=== PATIENT | female | born 1980 | race Caucasian/White ===

== ENCOUNTER → 2017-03-14 | Outpatient (CLI) | payer OTHER ==
[2017-03-14 15:24] LABS: BASOPHILS % (AUTO) 0 % (0-10); EOSINOPHILS % (AUTO) 1 % (0-10); LYMPHOCYTES # (AUTO) 2.1 X 10^3 (1.0-4.0); LYMPHOCYTES % (AUTO) 38 % (12-44); MEAN CORPUSCULAR HEMOGLOBIN 31 PG (25-34); MEAN CORPUSCULAR HGB CONC 33 G/DL (32-36); MEAN CORPUSCULAR VOLUME 91 FL (80-99); MEAN PLATELET VOLUME 10.3 FL (7.4-10.4); MONOCYTES # (AUTO) 0.4 X 10^3 (0.0-1.0); MONOCYTES % (AUTO) 7 % (0-12); NEUTROPHILS % (AUTO) 54 % (42-75); PLATELET COUNT 306 10^3/uL (130-400); RED CELL DISTRIBUTION WIDTH 13.1 % (10.0-14.5); WHITE BLOOD COUNT 5.6 10^3/uL (4.3-11.0)
[2017-03-14 15:45] LABS: ALANINE AMINOTRANSFERASE 17 U/L (0-55); ALBUMIN 4.1 GM/DL (3.2-4.5); ANION GAP 7 MMOL/L (5-14); ASPARTATE AMINO TRANSFERASE 19 U/L (5-34); BILIRUBIN,TOTAL 0.3 MG/DL (0.1-1.0); BLOOD UREA NITROGEN 14 MG/DL (7-18); BUN/CREATININE RATIO 17; CALCIUM 9.5 MG/DL (8.5-10.1); CARBON DIOXIDE 26 MMOL/L (21-32); CHLORIDE 109 MMOL/L (98-107); CREATININE SERUM 0.81 MG/DL (0.60-1.30); GFR ESTIMATED > 60; GLUCOSE 68 MG/DL (70-105); POTASSIUM 3.9 MMOL/L (3.6-5.0); SODIUM 142 MMOL/L (135-145); TOTAL PROTEIN 7.1 GM/DL (6.4-8.2)
[2017-03-14 16:05] LABS: THYROID STIMULATING HORMONE 0.51 UIU/ML (0.35-4.94)
== END ==
LOC: LAB 15:06
PROVIDERS: ATTEND Family Medicine
DX: R53.83 Other fatigue (principal); E03.9 Hypothyroidism, unspecified
CPT/HCPCS: 36415; 80053; 84439; 84443; 85025

== ENCOUNTER → 2018-07-11 | Outpatient (CLI) | payer OTHER ==
[2018-07-11 12:41] LABS: BASOPHILS % (AUTO) 0 % (0-10); EOSINOPHILS # (AUTO) 0.1 10^3/uL (0.0-0.3); EOSINOPHILS % (AUTO) 2 % (0-10); HEMATOCRIT 36 % (35-52); HEMOGLOBIN 12.1 G/DL (11.5-16.0); LYMPHOCYTES # (AUTO) 2.4 X 10^3 (1.0-4.0); LYMPHOCYTES % (AUTO) 42 % (12-44); MEAN CORPUSCULAR HEMOGLOBIN 30 PG (25-34); MEAN CORPUSCULAR HGB CONC 34 G/DL (32-36); MEAN CORPUSCULAR VOLUME 89 FL (80-99); MEAN PLATELET VOLUME 10.3 FL (7.4-10.4); MONOCYTES # (AUTO) 0.5 X 10^3 (0.0-1.0); MONOCYTES % (AUTO) 8 % (0-12); NEUTROPHILS # (AUTO) 2.8 X 10^3 (1.8-7.8); NEUTROPHILS % (AUTO) 48 % (42-75); PLATELET COUNT 300 10^3/uL (130-400); RED CELL DISTRIBUTION WIDTH 13.5 % (10.0-14.5); WHITE BLOOD COUNT 5.8 10^3/uL (4.3-11.0)
[2018-07-11 13:07] LABS: ALANINE AMINOTRANSFERASE 14 U/L (0-55); ALBUMIN 4.5 GM/DL (3.2-4.5); ALKALINE PHOSPHATASE 25 U/L (40-136); BILIRUBIN,TOTAL 0.4 MG/DL (0.1-1.0); BUN/CREATININE RATIO 19; CALCIUM 9.6 MG/DL (8.5-10.1); CARBON DIOXIDE 24 MMOL/L (21-32); CHLORIDE 107 MMOL/L (98-107); CHOLESTEROL 174 MG/DL (< 200); CREATININE SERUM 0.81 MG/DL (0.60-1.30); GFR ESTIMATED > 60; GLUCOSE 87 MG/DL (70-105); HDL CHOLESTEROL 49 MG/DL (40-60); POTASSIUM 3.7 MMOL/L (3.6-5.0); SODIUM 140 MMOL/L (135-145); TOTAL PROTEIN 7.2 GM/DL (6.4-8.2); TRIGLYCERIDES 128 MG/DL (<150); VLDL CHOLESTEROL 26 MG/DL (5-40)
[2018-07-11 13:18] LABS: ERYTHROCYTE SEDIMENTATION RATE 15 MM/HR (0-20)
[2018-07-11 13:27] LABS: FREE T4 (FREE THYROXINE) 0.95 NG/DL (0.70-1.48)
== END ==
LOC: LAB 12:23
PROVIDERS: ATTEND Family Medicine
DX: Z00.00 Encounter for general adult medical examination without abnormal findings (principal); R53.83 Other fatigue
CPT/HCPCS: 36415; 80053; 80061; 83970; 84439; 84443; 85025; 85652

== ENCOUNTER → 2019-01-17 | Outpatient (REF) ==
--- NOTE | 2019-01-17 18:01 | Diagnostic Imaging Report ---
INDICATION: Right wrist pain. AP, oblique, and lateral views of the right wrist are obtained. No fracture or acute bony abnormality is seen. IMPRESSION: Negative right wrist. Dictated by: Dictated on workstation # [id number]
== END | disposition home or self-care (01) ==
LOC: MERGE 15:53 → OCC 15:53
PROVIDERS: ATTEND Family Medicine
CPT/HCPCS: 73110

== ENCOUNTER 2019-03-04 08:00 | Outpatient (RCR) | payer OTHER | END 2019-03-04 13:23 | disposition home or self-care (01) | PROVIDERS: ATTEND Family Medicine | DX: M12.531 Traumatic arthropathy, right wrist (principal) ==

== ENCOUNTER → 2020-08-03 | Outpatient (RCR) | payer OTHER | END | disposition home or self-care (01) | PROVIDERS: ATTEND Nurse Practitioner Family | DX: M54.16 Radiculopathy, lumbar region (principal); M79.604 Pain in right leg; M79.605 Pain in left leg ==

== ENCOUNTER 2020-08-28 09:54 | Outpatient (RCR) | payer OTHER | END 2020-09-25 15:34 | disposition home or self-care (01) | PROVIDERS: ATTEND Nurse Practitioner Family | DX: M54.42 Lumbago with sciatica, left side (principal); M54.41 Lumbago with sciatica, right side; J45.909 Unspecified asthma, uncomplicated ==

== ENCOUNTER → 2020-10-23 | Outpatient (CLI) | payer OTHER ==
--- NOTE | 2020-10-23 12:03 | Diagnostic Imaging Report ---
Indication: Routine screening. No prior mammograms are available for comparison. This a baseline mammogram. 2-D and 3-D bilateral screening mammography was performed with CAD. Both breasts are heterogeneously dense, limiting the sensitivity of mammography. There is a focal density in the lower and slightly inner aspect of the right breast at mid depth. Left breast is unremarkable. There are benign calculus locations. No malignant appearing microcalcifications are seen. Axillae are unremarkable. IMPRESSION: BI-RADS 0 Right breast density. Additional views recommended for further evaluation. ACR BI-RADS Category 0: Incomplete. (Needs additional imaging evaluation). Result letter will be mailed to the patient. Note: At least 10% of breast cancer is not imaged by mammography. Dictated by: Dictated on workstation # [id number]
== END ==
LOC: RAD 10:30
PROVIDERS: ATTEND Nurse Practitioner
DX: Z12.31 Encounter for screening mammogram for malignant neoplasm of breast (principal)
CPT/HCPCS: 77063; 77067

== ENCOUNTER → 2020-11-16 | Outpatient (CLI) | payer OTHER ==
--- NOTE | 2020-11-16 14:07 | Diagnostic Imaging Report ---
INDICATION: A curvilinear nodule right breast inferiorly seen at screening mammograms. A unilateral right 2-D and 3-D digital diagnostic mammograms with CAD performed. There is persistent curvilinear nodule inferiorly in the right breast at its mid depth. This has a lucent component and is probably but inconclusively reflective of an intramammary lymph node. We are proceeding with targeted right breast ultrasound as further evaluation is currently pending. No other focal abnormality. No spiculated lesion and no suspicious calcifications. IMPRESSION: Persistent curvilinear right breast density appears to have a significant fatty composition favored to be a lymph node, ultrasound correlation currently pending BI-RADS Category 0. Right breast ultrasound recommended and currently pending. ACR BI-RADS Category 0: Incomplete. (Needs additional imaging evaluation). Result letter will be mailed to the patient. Note: At least 10% of breast cancer is not imaged by mammography. Dictated by: Dictated on workstation # [id number]
--- NOTE | 2020-11-16 14:09 | Diagnostic Imaging Report ---
INDICATION: Baseline screening as well as subsequent diagnostic views. There was a somewhat persistent albeit inconsistent curvilinear opacity mid depth right breast inferiorly. No spiculated lesion at mammography and convincing true mass was not identified. We did however went to proceed with targeted right breast ultrasound. Targeted right breast ultrasound over the inferior aspect of the right breast showed no solid or cystic mass. No ductal ectasia, no fluid collection and no parenchymal distortion. IMPRESSION: This is a normal negative targeted right breast ultrasound and separately performed diagnostic mammography showed equivocal findings for a small partly fatty mass. As initially presents with Baseline views. I do feel 6 month follow-up unilateral right diagnostic mammography with possible ultrasound at that time is appropriate despite negative ultrasound. BI-RADS Category 3 likely benign findings but follow-up 6 month right diagnostic mammogram recommended with possible ultrasound at that time. ACR BI-RADS Category 3: Probably benign findings. Result letter will be mailed to the patient. Note: At least 10% of breast cancer is not imaged by mammography. Dictated by: Dictated on workstation # [id number]
== END ==
LOC: RAD 13:15
PROVIDERS: ATTEND Nurse Practitioner
DX: N63.10 Unspecified lump in the right breast, unspecified quadrant (principal)
CPT/HCPCS: 76642; 77065; G0279

== ENCOUNTER → 2021-07-08 | Outpatient (CLI) | payer OTHER ==
--- NOTE | 2021-07-08 11:21 | Diagnostic Imaging Report ---
INDICATION: Right breast density. Patient presents for a six-month follow-up. CORRELATION is made with prior mammogram from 10/23/2020. Unilateral right 2-D and 3-D diagnostic mammography was performed with CAD. Scattered fibroglandular densities of the right breast are noted. The density noted in the inferior central right breast appears stable. No new mass or malignant-appearing microcalcifications are seen. Right axilla is unremarkable. IMPRESSION: BI-RADS Category 3 Stable right mammogram and right breast density. Additional six-month follow-up is recommended to show continued stability. ACR BI-RADS Category 3: Probably benign findings. Result letter will be mailed to the patient. Note: At least 10% of breast cancer is not imaged by mammography. Dictated by: Dictated on workstation # [id number]
== END ==
LOC: RAD 09:45
PROVIDERS: ATTEND Nurse Practitioner
DX: R92.8 Other abnormal and inconclusive findings on diagnostic imaging of breast (principal)
CPT/HCPCS: 77065; G0279

== ENCOUNTER 2021-08-13 11:09 | Outpatient (CLI) | payer OTHER | END 2021-08-13 11:50 | disposition home or self-care (01) | LOC: SLEEP 11:09 | PROVIDERS: ATTEND Nurse Practitioner Family | DX: G47.9 Sleep disorder, unspecified (principal) | CPT/HCPCS: G0399 ==

== ENCOUNTER → 2022-06-02 | Outpatient (CLI) | payer OTHER ==
--- NOTE | 2022-06-02 10:27 | Diagnostic Imaging Report ---
INDICATION: Abdominal pain Gallbladder sonography performed the routine fashion The liver shows normal echogenicity without focal lesion. Portal vein is patent with hepatopetal flow. Gallbladder is somewhat enlarged and hydropic. There is sludge in the gallbladder posteriorly. There is minimal to no gallbladder wall thickening. Common duct measured 4 mm. The visualized portions of the pancreas are normal. The aorta and IVC are of indeterminate overlying gas. Right kidney measured 9.9 cm in length. There is no ascites. IMPRESSION: Gallbladder is mildly distended and contains some sludge. There is no significant gallbladder wall thickening or biliary dilatation. There was no other significant finding. If there is clinical suspicion for cholecystitis, nuclear hepatobiliary study may be helpful. Dictated by: Dictated on workstation # [id number]
== END ==
LOC: RAD 08:00
DX: K82.9 Disease of gallbladder, unspecified (principal)
CPT/HCPCS: 76705

== ENCOUNTER 2022-06-13 12:16 | Emergency (ER) | payer OTHER ==
[~2022-06-13] VITALS: Ht 149 cm; Wt 62.0 kg
[2022-06-13] MEDS ORDERED: LACTATED RINGERS 1,000 ML IV STA (13:18)
--- NOTE | 2022-06-13 13:23 | ED Abdominal Pain ---
General Chief Complaint: Abdominal/GI Problems Stated Complaint: ABD PAIN Nursing Triage Note: ABDPAIN STARTING ON SAT. GALLBLADDER REMOVED ON MONDAY. STATES SHE CALLED HER DR WHO THINKS SHE HAS A BOWEL IMPACTION. Source of Information: Patient Exam Limitations: No Limitations History of Present Illness Date Seen by Provider: Jun 13, 2022 Time Seen by Provider: 12:22 Initial Comments 41-year-old female with past medical history of multiple abdominal surgeries with recent [facility] [place] coming in due to abdominal pain and constipation with persistent nausea. Surgery was , went home same day. Did not have a bowel movement until Monday. Have been taking Dulcolax as needed. Intermittently has issues with constipation anyways, but worsened due to the pain medication. At home she is been on tramadol with the last dose given yesterday. She has Phenergan for nausea with the last dose taken yesterday as well. Has not had any significant vomiting. Is keeping fluids down. Had a hard stool on Monday which was very small. Otherwise denying any fever, chest pain, shortness of breath, dysuria, diarrhea, rash, or any other concerns Allergies and Home Medications Allergies Coded Allergies: hydrocodone (Verified Allergy, Severe, HIVES, 06/13/22) COVID-19 (SARS-CoV-2) vaccine, zaire (Verified Adverse Reaction, Unknown, COVID SX, 06/13/22) Patient Home Medication List Home Medication List Reviewed: Yes Review of Systems Review of Systems Constitutional: No fever EENTM: No Symptoms Reported Respiratory: No Symptoms Reported Cardiovascular: No Symptoms Reported Gastrointestinal: See HPI Genitourinary: No Symptoms Reported Musculoskeletal: no symptoms reported Skin: no symptoms reported Psychiatric/Neurological: No Symptoms Reported Endocrine: No Symptoms Reported Hematologic/Lymphatic: No Symptoms Reported Past Xstuwoc-Bjsgsl-Tfixjj Hx Patient Social History Tobacco Use?: No Substance use?: No Alcohol Use?: No Immunizations Up To Date Second COVID19 Vaccination Markel: UNKNOWN COVID19 Vaccine Ssn/Ssbn Assistant Navigator: ERA Past Medical History Surgery/Hospitalization HX: Niesen followed by reversal of her Niesen, cholecystectomy, x3, hysterectomy Hysterectomy Physical Exam Vital Signs Vital Signs - First Documented 06/13/22 12:39 Temp 36.4 Pulse 98 Resp 16 B/P (MAP) 117/84 (95) Pulse Ox 98 O2 Delivery Room Air Capillary Refill : Less Than 3 Seconds Height/Weight/BMI Height: '" Weight: lbs. oz. kg; 27.00 BMI Method: General Appearance: WD/WN, no apparent distress HEENT: PERRL/EOMI, normal ENT inspection, pharynx normal Neck: non-tender, full range of motion, supple, normal inspection Respiratory: chest non-tender, lungs clear, normal breath sounds, no respiratory distress, no accessory muscle use Cardiovascular: regular rate, rhythm, no edema, no murmur Gastrointestinal: normal bowel sounds, soft; No distended, No guarding, No rebound; tenderness (Mild general), other (Abdominal wounds clean, dry, intact with surgical glue in place) Extremities: normal range of motion, non-tender, normal inspection, no pedal edema, no calf tenderness, normal capillary refill Back: normal inspection, no CVA tenderness Neurologic/Psychiatric: no motor/sensory deficits, alert, normal mood/affect Skin: normal color, warm/dry Lymphatic: no adenopathy Progress/Results/Core Measures Results/Orders Lab Results Laboratory Tests Test 06/13/22 13:10 Range/Units White Blood Count 15.3 H 4.3-11.0 10^3/uL Red Blood Count 5.07 3.80-5.11 10^6/uL Hemoglobin 15.2 11.5-16.0 g/dL Hematocrit 44 35-52 % Mean Corpuscular Volume 87 80-99 fL Mean Corpuscular Hemoglobin 30 25-34 pg Mean Corpuscular Hemoglobin Concent 34 32-36 g/dL Red Cell Distribution Width 16.6 H 10.0-14.5 % Platelet Count 410 H 130-400 10^3/uL Mean Platelet Volume 11.0 9.0-12.2 fL Immature Granulocyte % (Auto) 0 % Neutrophils (%) (Auto) 83 H 42-75 % Lymphocytes (%) (Auto) 9 L 12-44 % Monocytes (%) (Auto) 7 0-12 % Eosinophils (%) (Auto) 0 0-10 % Basophils (%) (Auto) 0 0-10 % Neutrophils # (Auto) 12.7 H 1.8-7.8 10^3/uL Lymphocytes # (Auto) 1.4 1.0-4.0 10^3/uL Monocytes # (Auto) 1.1 H 0.0-1.0 10^3/uL Eosinophils # (Auto) 0.0 0.0-0.3 10^3/uL Basophils # (Auto) 0.0 0.0-0.1 10^3/uL Immature Granulocyte # (Auto) 0.1 0.0-0.1 10^3/uL Neutrophils % (Manual) 85 % Lymphocytes % (Manual) 7 % Monocytes % (Manual) 4 % Band Neutrophils 4 % Poikilocytosis SLIGHT Anisocytosis SLIGHT Microcytosis SLIGHT Macrocytosis SLIGHT Sodium Level 138 135-145 MMOL/L Potassium Level 3.0 L 3.6-5.0 MMOL/L Chloride Level 107 98-107 MMOL/L Carbon Dioxide Level 13 L 21-32 MMOL/L Anion Gap 18 H 5-14 MMOL/L Blood Urea Nitrogen 10 7-18 MG/DL Creatinine 0.78 0.60-1.30 MG/DL Estimat Glomerular Filtration Rate 98 BUN/Creatinine Ratio 13 Glucose Level 93 70-105 MG/DL Calcium Level 10.0 8.5-10.1 MG/DL Corrected Calcium 9.6 8.5-10.1 MG/DL Magnesium Level 1.7 1.6-2.4 MG/DL Total Bilirubin 0.5 0.1-1.0 MG/DL Aspartate Amino Transf (AST/SGOT) 11 5-34 U/L Alanine Aminotransferase (ALT/SGPT) 20 0-55 U/L Alkaline Phosphatase 39 L 40-136 U/L Total Protein 8.1 6.4-8.2 GM/DL Albumin 4.5 3.2-4.5 GM/DL Lipase 56 8-78 U/L My Orders Orders - MARIANELA MONROY MD Cbc With Automated Diff (06/13/22 13:18) Comprehensive Metabolic Panel (06/13/22 13:18) Lipase (06/13/22 13:18) Magnesium (06/13/22 13:18) Ct Abdomen/Pelvis W (06/13/22 13:18) Ed Iv/Invasive Line Start (06/13/22 13:18) Ondansetron Injection (Zofran Injectio (06/13/22 13:30) Lactated Ringers (Lr 1000 Ml Iv Solution (06/13/22 13:18) Methylnaltrexone Injection (Relistor Inj (06/13/22 13:30) Iohexol Injection (Omnipaque 350 Mg/Ml 1 (06/13/22 13:30) Received Contrast (Hold Metformin- Contr (06/13/22 13:30) Ns (Ivpb) (Sodium Chloride 0.9% Ivpb Bag (06/13/22 13:30) Manual Differential (06/13/22 13:10) Medications Given in ED Current Medications Medications Dose Ordered Sig/Daisy Route Start Time Stop Time Status Last Admin Dose Admin Iohexol 100 ml ONCE ONCE IV 06/13/22 13:30 06/13/22 13:31 DC 06/13/22 13:44 80 ML Methylnaltrexone [place] 12 mg ONCE ONCE SQ 06/13/22 13:30 06/13/22 13:31 DC 06/13/22 13:30 12 MG Ondansetron HCl 4 mg ONCE ONCE IVP 06/13/22 13:30 06/13/22 13:31 DC 06/13/22 13:30 4 MG Sodium Chloride 100 ml ONCE ONCE IV 06/13/22 13:30 06/13/22 13:31 DC 06/13/22 13:44 80 ML Vital Signs/I&O 06/13/22 12:39 Temp 36.4 Pulse 98 Resp 16 B/P (MAP) 117/84 (95) Pulse Ox 98 O2 Delivery Room Air Blood Pressure Mean: 95 Progress Progress Note : Progress Note 41-year-old female with above history coming in due to abdominal pain and constipation. ABCs were intact and vitals are stable on presentation. Her abdominal exam is reassuring including a soft abdomen with no signs of peritonitis. Her abdominal surgical wounds appear clean, dry, intact. An IV was placed and basic labs were obtained and overall not concerning especially given recent surgery. She was given fluids as well as Zofran. Given subcu methylnaltrexone given the constipation likely related to opioids. CT abdomen pelvis with left sided colon and colitis likely. We will start her on Augmentin, nausea meds, and a solid regimen for persistent bowel movements. Diagnostic Imaging Diagonstic Imaging: CT (abd/pelvis) Comments NAME: ZENOBIA AGUILARSAMARA Bo [facility] REC#: [id number] PT STATUS: REG ER : 1980 PHYSICIAN: MARIANELA MONROY MD ADMIT DATE: 06/13/22/ER Draft Date of Exam:06/13/22 CT ABDOMEN/PELVIS W EXAMINATION: CT abdomen and pelvis with intravenous contrast. TECHNIQUE: Multiple contiguous axial images were obtained through the abdomen and pelvis after the uneventful administration of intravenous contrast. All CT scans use one or more of the following dose optimizing techniques: automated exposure control, MA and/or KvP adjustment based on patient size and exam type or iterative reconstruction. HISTORY: lower abd pain, recent cholecystectomy, no BM for 2 days COMPARISON: None available. FINDINGS: Lung bases: The lung bases are clear. Solid organs: The liver is normal without focal lesion. The gallbladder is surgically absent. There is no biliary ductal dilation. Pancreas is normal. Spleen is normal. Adrenal glands are normal. The kidneys are normal without hydronephrosis. Bowel: Surgical changes of the stomach and small bowel. There is no bowel obstruction. There is diffuse wall thickening of the left hemicolon. The appendix is normal. Peritoneum: There is no intraperitoneal free fluid or free air. No suspicious lymphadenopathy. Vasculature: Normal without aneurysm. Musculoskeletal: No suspicious osseous lesion or compression fracture. Pelvis: The uterus is surgically absent. No adnexal mass. The urinary bladder is normal. IMPRESSION: 1. Wall thickening and inflammatory stranding of the left hemicolon which is concerning for an infectious or inflammatory colitis. Dictated on workstation # [id number] Dict: 06/13/22 1351 Trans: 06/13/22 1356 [id number] [id number] Interpreted by: LILI PELAEZ DO Electronically signed by: Departure Impression Primary Impression: Colitis Additional Impression: Constipation Qualified Codes: K59.03 - Drug induced constipation Disposition: 01 HOME, SELF-CARE Condition: Stable Departure-Patient Inst. Decision time for Depature: 14:08 Referrals: RADHA GLASS APRN (PCP) Primary Care Physician DIANA LUGO DO (Family) Primary Care Physician Patient Instructions: Colitis (DC), Constipation, Adult ED Add. Discharge Instructions: You have 2 issues, constipation is likely related to the surgery, but there does not appear to be any type of impaction or obstruction on the CT imaging. There is some inflammation in the left side of your colon which is likely infectious. You will be on antibiotics for the next week. These can cause loose stools, which may be something that you might not mind at this time. We will also start you on a regimen of MiraLAX twice daily until you are having more frequent bowel movements. Oxycodone was sent which she can take for times of extreme pain, Tylenol otherwise. Zofran was also sent which you can take if the Phenergan is not working. Follow-up with your surgeon in the next week, especially if things are not improving. Scripts Ondansetron (Ondansetron Odt) 4 Mg Tab.rapdis 4 MG SL Q6H PRN for NAUSEA/VOMITING for 5 Days, #20 TAB Prov: MARIANELA MONROY MD 06/13/22 Oxycodone HCl (Oxycodone HCl) 5 Mg Tablet 5 MG PO Q8H PRN for PAIN-SEVERE (8-10) for 4 Days, #12 TAB Prov: MARIANELA MONROY MD 06/13/22 Polyethylene Glycol 3350 (Miralax) 17 Gram Powd.pack 17 GM PO BID for 7 Days, #14 EACH Prov: MARIANELA MONROY MD 06/13/22 Amoxicillin/Potassium Clav (Amox Tr-K Clv 875-125 mg Tab) 875 Mg-125 Mg Tablet 1 EACH PO BID for 7 Days, #14 TAB Prov: MARIANELA MONROY MD 06/13/22 Work/School Note: Family Work Note, Patient Received Medical Care In the Emergency Department On: Jun 13, 2022 Patient Will Be Able to Return to Work/School On: Jun 14, 2022 Work Release Form Date Seen in the Emergency Department: Jun 13, 2022 Return to Work: Jun 14, 2022 Restrictions: No Restrictions MARIANELA MONROY MD Jun 13, 2022 13:23
[2022-06-13 13:25] LABS: BASOPHILS % (AUTO) 0 % (0-10); EOSINOPHILS % (AUTO) 0 % (0-10); HEMATOCRIT 44 % (35-52); HEMOGLOBIN 15.2 g/dL (11.5-16.0); LYMPHOCYTES # (AUTO) 1.4 10^3/uL (1.0-4.0); LYMPHOCYTES % (AUTO) 9 % (12-44); MEAN CORPUSCULAR HEMOGLOBIN 30 pg (25-34); MEAN CORPUSCULAR HGB CONC 34 g/dL (32-36); MEAN CORPUSCULAR VOLUME 87 fL (80-99); MONOCYTES # (AUTO) 1.1 10^3/uL (0.0-1.0); MONOCYTES % (AUTO) 7 % (0-12); NEUTROPHILS # (AUTO) 12.7 10^3/uL (1.8-7.8); NEUTROPHILS % (AUTO) 83 % (42-75); PLATELET COUNT 410 10^3/uL (130-400); WHITE BLOOD COUNT 15.3 10^3/uL (4.3-11.0)
[2022-06-13] MEDS ORDERED: HOLD METFORMIN - RECEIVED CONTRAST 20 ML VIAL IV SCH (13:30)
[2022-06-13] MEDS ORDERED: METHYLNALTREXONE 12 MG/0.6 ML (RELISTOR) VIAL SQ ONE (13:30)
[2022-06-13] MEDS ORDERED: ONDANSETRON 4 MG/2 ML (SDV) Z0FRAN IVP ONE (13:30)
[2022-06-13] MEDS ORDERED: IOHEXOL 350 MG/ML 100 ML (OMNIPAQUE 350) VIAL IV ONE (13:30)
[2022-06-13] MEDS ORDERED: NS 100 ML (IVPB) BAG IV ONE (13:30)
[2022-06-13 13:32] LABS: ALBUMIN 4.5 GM/DL (3.2-4.5)
[2022-06-13 13:35] LABS: TOTAL PROTEIN 8.1 GM/DL (6.4-8.2)
[2022-06-13 13:37] LABS: BILIRUBIN,TOTAL 0.5 MG/DL (0.1-1.0)
[2022-06-13 13:39] LABS: CREATININE SERUM 0.78 MG/DL (0.60-1.30)
[2022-06-13 13:40] LABS: BAND NEUTROPHILS 4 %; LYMPHOCYTES % (MANUAL) 7 %; MONOCYTES % (MANUAL) 4 %; NEUTROPHILS % (MANUAL) 85 %
[2022-06-13 13:41] LABS: MAGNESIUM 1.7 MG/DL (1.6-2.4)
[2022-06-13 13:44] LABS: ANISOCYTOSIS SLIGHT; MICROCYTOSIS SLIGHT
[2022-06-13 13:45] LABS: POIKILOCYTOSIS SLIGHT
--- NOTE | 2022-06-13 13:57 | Diagnostic Imaging Report ---
EXAMINATION: CT abdomen and pelvis with intravenous contrast. TECHNIQUE: Multiple contiguous axial images were obtained through the abdomen and pelvis after the uneventful administration of intravenous contrast. All CT scans use one or more of the following dose optimizing techniques: automated exposure control, MA and/or KvP adjustment based on patient size and exam type or iterative reconstruction. HISTORY: lower abd pain, recent cholecystectomy, no BM for 2 days COMPARISON: None available. FINDINGS: Lung bases: The lung bases are clear. Solid organs: The liver is normal without focal lesion. The gallbladder is surgically absent. There is no biliary ductal dilation. Pancreas is normal. Spleen is normal. Adrenal glands are normal. The kidneys are normal without hydronephrosis. Bowel: Surgical changes of the stomach and small bowel. There is no bowel obstruction. There is diffuse wall thickening of the left hemicolon. The appendix is normal. Peritoneum: There is no intraperitoneal free fluid or free air. No suspicious lymphadenopathy. Vasculature: Normal without aneurysm. Musculoskeletal: No suspicious osseous lesion or compression fracture. Pelvis: The uterus is surgically absent. No adnexal mass. The urinary bladder is normal. IMPRESSION: 1. Wall thickening and inflammatory stranding of the left hemicolon which is concerning for an infectious or inflammatory colitis. Dictated by: Dictated on workstation # [id number]
[2022-06-13] MEDS ORDERED: ONDA4TAB11 SL (14:05)
[2022-06-13] MEDS ORDERED: POLY17PO6 PO (14:05)
[2022-06-13] MEDS ORDERED: OXYC5TAB PO (14:05)
[2022-06-13] MEDS ORDERED: AMOX1TAB12 PO (14:05)
[2022-06-13 14:30] VITALS: BP 103/72
== END 2022-06-13 14:30 | disposition home or self-care (01) ==
LOC: EDUNIT# 12:16 → ER 12:18
DX: K59.00 Constipation, unspecified (principal); K52.9 Noninfective gastroenteritis and colitis, unspecified; Z90.49 Acquired absence of other specified parts of digestive tract; Z88.5 Allergy status to narcotic agent
CPT/HCPCS: 36415; 74177; 80053; 83690; 83735; 85007; 85027

== ENCOUNTER → 2022-09-23 | Outpatient (CLI) | payer OTHER ==
[~2022-09-23] MED LIST: AMOX1TAB12 PO; ONDA4TAB11 SL; OXYC5TAB PO; POLY17PO6 PO
--- NOTE | 2022-09-23 14:45 | Diagnostic Imaging Report ---
INDICATION: Followup right breast density. Correlation is made with prior mammograms dating back to 10/23/2020. 2-D and 3-D bilateral diagnostic mammography was performed with CAD. Both breasts are heterogeneously dense, limiting sensitivity of mammography. There is a slightly nodular density in the lower central right breast which is similar to prior exams. No other masses are seen. No malignant-appearing microcalcifications are identified. There are occasional benign calcifications. Axillae are unremarkable. IMPRESSION: Right breast nodular density inferior central aspect, similar to prior exams. Even so, sonographic interrogation of this area is recommended and will be performed today. ACR BI-RADS Category 0: Incomplete. (Needs additional imaging evaluation). Result letter will be mailed to the patient. Note: At least 10% of breast cancer is not imaged by mammography. BI-RADS 0 Dictated by: Dictated on workstation # [id number]
--- NOTE | 2022-09-23 18:05 | Diagnostic Imaging Report ---
INDICATION: Right breast density. COMPARISON: Correlation is made with diagnostic mammogram earlier the same day. EXAMINATION: Sonographic interrogation of the inferior right breast was performed. FINDINGS: There is a hypoechoic nodule at the 6:00 location, 5-6 cm from the nipple. This measures approximately 8 x 4 x 10 mm and likely accounts for the mammographic density. This is fairly well-defined and does have a somewhat lobulated contour. Some margins are somewhat obscured however. There does appear to be some internal vascularity. No other mass is seen. IMPRESSION: Hypoechoic solid-appearing nodule at the 6:00 location of right breast, 5-6 cm from the nipple. This likely accounts for the mammographic density. While this most likely represents a fibroadenoma, some margins are somewhat obscured. Tissue sampling would be recommended. This would be amenable to ultrasound-guided core biopsy. Dictated by: Dictated on workstation # [id number]
== END ==
LOC: RAD 13:15
PROVIDERS: ATTEND Physician Assistant
DX: Z12.31 Encounter for screening mammogram for malignant neoplasm of breast (principal); N63.10 Unspecified lump in the right breast, unspecified quadrant
CPT/HCPCS: 76642; 77066; G0279; 77062

== ENCOUNTER → 2022-10-06 | Outpatient (CLI) | payer OTHER ==
[~2022-10-06] VITALS: Ht 149.9 cm; Wt 62.0 kg
[~2022-10-06] MED LIST changes: +LIDOCAINE 1% INJ 10 ML VIAL INJ ONE; +LIDOCAINE 1% INJ 10 ML VIAL ONE
--- NOTE | 2022-10-06 15:20 | Diagnostic Imaging Report ---
INDICATION: Right breast mass. Patient presents for ultrasound-guided core biopsy. Patient brought to the sonographic suite and placed on table in the supine position. Ultrasound imaging of the right breast was performed to evaluate appropriate entry site. Right breast was prepped and draped in usual sterile fashion. Small amount of 1% lidocaine was utilized for local anesthesia. A total of 4 core biopsies were obtained of the hypoechoic nodule at the 6 o'clock location of the right breast utilizing a 14-gauge Achieve needle. A marker clip was then deployed. Needle was removed and hemostasis was obtained. Patient tolerated procedure well and was sent for post procedure mammogram in satisfactory condition. IMPRESSION: Successful ultrasound-guided core biopsy of the hypoechoic nodule 6 o'clock location right breast. Pathology results are currently pending. Dictated by: Dictated on workstation # [id number]
--- NOTE | 2022-10-06 17:00 | Diagnostic Imaging Report ---
INDICATION: Right breast nodule, status post ultrasound-guided biopsy. Unilateral right 2-D CC and ML mammography was performed after patient underwent ultrasound-guided right breast biopsy. There is a marker clip adjacent to the lesion in the inferior right breast at mid depth, status post ultrasound-guided core biopsy. IMPRESSION: Marker clip placement, as described. Dictated by: Dictated on workstation # [id number]
== END ==
LOC: RAD 12:37
PROVIDERS: ATTEND Physician Assistant
DX: N63.15 Unspecified lump in the right breast, overlapping quadrants (principal); Z98.890 Other specified postprocedural states
CPT/HCPCS: 19083; 77065; G0279

== ENCOUNTER → 2023-03-15 | Outpatient (CLI) | payer OTHER ==
[~2023-03-15] MED LIST changes: -LIDOCAINE 1% INJ 10 ML VIAL INJ ONE; -LIDOCAINE 1% INJ 10 ML VIAL ONE
--- NOTE | 2023-03-15 09:14 | Diagnostic Imaging Report ---
INDICATION: Pain. EXAMINATION: Right ankle, 3 views, on 03/15/2023. FINDINGS: There is a density posterior to the talus which is fairly well-corticated and likely old. Correlate with site of pain. The remaining osseous structures are intact. No dislocations. The ankle mortise is preserved. IMPRESSION: Osseous density posterior to the talus is presumably old, correlate with site of pain; otherwise, negative ankle. Dictated by: Dictated on workstation # [id number]
--- NOTE | 2023-03-15 10:29 | Diagnostic Imaging Report ---
INDICATION: ACQUIRED RIGHT HALLUX VALGUS COMPARISON: None. FINDINGS: 3 views of the right foot demonstrate no acute fracture or dislocation. There are no focal osseous lesions. There is no soft tissue swelling. Joint spaces are well maintained. No radiopaque foreign bodies are seen. IMPRESSION: No acute fractures or dislocations of the right foot. Dictated by: Dictated on workstation # [id number]
== END ==
LOC: ORTHO 08:35
PROVIDERS: ATTEND Orthopaedic Surgery
DX: M20.11 Hallux valgus (acquired), right foot (principal)
CPT/HCPCS: 73610; 73630; G0463; 99203

== ENCOUNTER → 2023-03-31 | Outpatient (CLI) | payer OTHER ==
--- NOTE | 2023-03-31 11:12 | Diagnostic Imaging Report ---
EXAMINATION: Magnetic resonance imaging of the right ankle without contrast. DATE: March 31, 2023. COMPARISON: Right foot radiographs March 15, 2023. HISTORY: 42-year-old female, right ankle pain. TECHNIQUE: Magnetic Resonance Imaging sequences were performed of the ankle without contrast. FINDINGS: TENDONS AND LIGAMENTS: The Achilles tendon is unremarkable. The posterior flexor tendons - tibialis posterior, flexor digitorum longus, flexor hallucis longus - are intact. The peroneal tendons - peroneus longus and peroneus brevis - are intact. The anterior extensor tendons - tibialis anterior, extensor hallucis longus and extensor digitorum longus tendons - are intact. The anterior and posterior syndesmotic ligaments are intact. The anterior talofibular, posterior talofibular, calcaneofibular and deltoid ligaments are intact. The plantar fascia is intact. JOINTS: There is edema-like signal underlying the medial talar dome without discrete contour abnormality of the articulating surface or visible cartilage defect. There is no tibiotalar joint effusion. There is no tibiotalar joint space loss. The subtalar and visualized joints of the mid-foot are intact. BONE: As mentioned above, there is edema-like signal underlying the medial talar dome is well is in the medial malleolus. There is no identified fracture line. There is a small focal area of edema-like signal in the proximal aspect of the middle cuneiform. BURSAE AND SOFT TISSUES: The bursae and soft tissues surrounding the ankle are unremarkable. IMPRESSION: 1. Edema-like signal underlying the medial talar dome without identified contour normality the articulating surface likely reflecting bone contusion with additional bone contusion of the medial malleolus. 2. Intact ankle tendons and ligaments. 3. Small focal area of edema-like signal in the proximal aspect of the middle cuneiform which is nonspecific and potentially could reflect a focal low-grade bone contusion. Dictated by: Dictated on workstation # [id number]
== END ==
LOC: RAD 10:00
PROVIDERS: ATTEND Orthopaedic Surgery
DX: M25.371 Other instability, right ankle (principal)